=== PATIENT | female | born 1950 | race Caucasian/White ===

== ENCOUNTER 2020-04-28 11:57 | Inpatient (IN) | payer MEDICARE ==
[2020-04-28 12:54] LABS: #Monocytes 0.6 10x3/uL (0.0-1.1); #Neutrophils 8.6 10x3/uL (1.5-8.4); %Basophils 0.2 % (0.0-2.0); %Eosinophils 0.1 % (0.0-6.0); %Lymphocytes 7.8 % (18.0-47.0); %Monocytes 5.9 % (0.0-10.0); Hemoglobin 13.7 g/dL (12.0-15.5); Mean Corpuscular HGB CONC 34.3 g/dL (32.0-36.0); Mean Corpuscular Hemoglobin 34.8 pg (27.0-33.0); Mean Corpuscular Volume 101.5 fl (81.6-98.3); Mean Platelet Volume 10.2 fl (7.4-10.4); Platelet Count 142 10x3/uL (150-450); RBC Distribution Width 14.1 % (11.5-14.5); Red Blood Cell (RBC) Count 3.94 10x6/uL (3.90-5.03); White Blood Cell (WBC) Count 10.2 10x3/uL (3.5-10.5)
[2020-04-28 13:07] LABS: ALT (SGPT) 99 U/L (8-55); AST (SGOT) 59 U/L (5-34); Alkaline Phosphatase 35 U/L (40-110); Anion Gap 18 mmol/L (10-20); BUN (Urea Nitrogen) 36 mg/dL (9.8-20.1); Bilirubin, Total 1.3 mg/dL (0.2-1.2); Calc. Creatinine Clearance 0 mL/min (70-130); Calcium 8.9 mg/dL (7.8-10.44); Carbon Dioxide 29 mmol/L (23-31); Chloride 97 mmol/L (98-107); Globulin 2.1 g/dL (2.4-3.5); Glucose 124 mg/dL (80-115); Potassium 3.7 mmol/L (3.5-5.1); Protein, Total 6.1 g/dL (5.8-8.1); Sodium 140 mmol/L (136-145)
[2020-04-28 14:41] LABS: CKMB 5.5 ng/mL (0-6.6)
[2020-04-28] MEDS ORDERED: Furosemide 40 MG/4 ML VIAL ONE (16:20)
[2020-04-28 17:33] LABS: Troponin I 0.089 ng/mL (< 0.028)
[2020-04-28] MEDS ORDERED: Acetaminophen 325 MG TAB PO PRN (17:43)
[2020-04-28] MEDS ORDERED: HYDROcodone/Acetaminophen 5/325 mg Tablet PO PRN (17:43)
[2020-04-28] MEDS ORDERED: Calcium Carbonate 500 MG ChewTAB PO PRN (17:43)
[2020-04-28] MEDS ORDERED: Senokot S 8.6-50 MG TAB PO PRN (17:43)
[2020-04-28] MEDS ORDERED: Fluticasone Propionate Nasal Spray 16 gm Bottle NASAL PRN (17:48)
[2020-04-28 17:50] VITALS: BMI 34.7
[2020-04-28] MEDS ORDERED: ESTRADIOL VAG SCH (18:00)
[2020-04-28 20:00] LABS: Bilirubin Neg (Negative); Blood, Urine Negative (Negative); Clarity Clear (Clear); Glucose, Urine (Dipstick) Normal (Negative); Ketone, Urine Negative (Negative); Leukocyte Negative (Negative); Nitrite Negative (Negative); Protein, Urine (Dipstick) Negative (Neg-Trace); Specific Gravity, Urine 1.005 (1.002-1.036); Urobilinogen Normal mg/dL (Less than 2)
[2020-04-28] MEDS ORDERED: Potassium Chloride 20 MEQ TAB PO SCH (20:00)
[2020-04-28] MEDS ORDERED: Artificial Tear Sol 15 ML BOT EA EYE PRN (20:10)
[2020-04-28 20:11] LABS: Bacteria/HPF None Seen HPF (None Seen); RBC/HPF None Seen HPF (0-3); Squamous Epithelial 0-3 HPF (0-3); WBC/HPF None Seen HPF (0-3)
[2020-04-28 20:18] LABS: Creatinine, Urine Less than 20.00 mg/dL (47-110); Microalbumin Urine Less than 1.0 mg/dL (0.5-50.0)
[2020-04-28 20:23] LABS: Troponin I 0.117 ng/mL (< 0.028)
[2020-04-28] MEDS: Arformoterol 15 MCG/2 ML NEB NEB SCH (20:30)
[2020-04-28] MEDS ORDERED: PILOCARPINE HCL 7.5 MG PO SCH (21:00)
[2020-04-28] MEDS ORDERED: [UNRECOGNIZED DRUG - OTHER] PO SCH (21:00)
[2020-04-28] MEDS ORDERED: Artificial Tear Sol 15 ML BOT EA EYE SCH (21:00)
[2020-04-28] MEDS ORDERED: CALCIUM CARBONATE PO SCH (21:00)
[2020-04-28] MEDS ORDERED: Cephalexin 500 MG CAP PO SCH (21:00)
[2020-04-28] MEDS ORDERED: VITAMIN D3 PO SCH (21:00)
[2020-04-28] MEDS: Montelukast Sodium 10 mg Tablet PO SCH (21:13)
[2020-04-28] MEDS: traZODone HCl 50 MG TAB PO SCH (21:13)
[2020-04-28] MEDS: Cephalexin 250 MG CAP PO SCH (21:13)
[2020-04-28] MEDS: Zolpidem Tartrate 5 MG TAB PO SCH (21:51)
[2020-04-28 23:54] LABS: CKMB 4.4 ng/mL (0-6.6)
[2020-04-29] MEDS: Albuterol Sulfate 2.5 mg/3 ml Neb NEB PRN ×2 (01:51→14:22)
[2020-04-29 05:50] LABS: #Eosinphils 0.1 10x3/uL (0.0-0.5); #Monocytes 0.7 10x3/uL (0.0-1.1); #Neutrophils 6.4 10x3/uL (1.5-8.4); %Basophils 0.2 % (0.0-2.0); %Eosinophils 0.5 % (0.0-6.0); %Lymphocytes 22.6 % (18.0-47.0); %Monocytes 7.7 % (0.0-10.0); %Neutrophils 68.1 % (40.0-75.0); Hemoglobin 11.7 g/dL (12.0-15.5); Mean Corpuscular HGB CONC 34.1 g/dL (32.0-36.0); Mean Corpuscular Hemoglobin 34.6 pg (27.0-33.0); Mean Corpuscular Volume 101.5 fl (81.6-98.3); Mean Platelet Volume 10.1 fl (7.4-10.4); Platelet Count 127 10x3/uL (150-450); RBC Distribution Width 14.5 % (11.5-14.5); Red Blood Cell (RBC) Count 3.38 10x6/uL (3.90-5.03); White Blood Cell (WBC) Count 9.4 10x3/uL (3.5-10.5)
[2020-04-29] MEDS: Furosemide 40 MG/4 ML VIAL SLOW IVP SCH ×2 (05:55→14:17)
[2020-04-29 06:02] LABS: ALT (SGPT) 75 U/L (8-55); AST (SGOT) 44 U/L (5-34); Albumin 3.3 g/dL (3.4-4.8); Alkaline Phosphatase 29 U/L (40-110); Bilirubin, Direct 0.4 mg/dL (0.1-0.3); Protein, Total 5.1 g/dL (5.8-8.1)
[2020-04-29 06:03] LABS: Anion Gap 14 mmol/L (10-20); BUN (Urea Nitrogen) 33 mg/dL (9.8-20.1); CRP (Inflammatory) Less than 0.50 mg/dL (= or < 0.5); Calc. Creatinine Clearance 72 mL/min (70-130); Calcium 7.8 mg/dL (7.8-10.44); Carbon Dioxide 28 mmol/L (23-31); Chloride 102 mmol/L (98-107); Glucose 91 mg/dL (80-115); Potassium 3.1 mmol/L (3.5-5.1); Sodium 141 mmol/L (136-145)
[2020-04-29 06:33] LABS: CKMB 4.3 ng/mL (0-6.6)
[2020-04-29 06:59] LABS: SARS-CoV-2 PCR by NAA Not Detected (NotDetected)
[2020-04-29] MEDS: Arformoterol 15 MCG/2 ML NEB NEB SCH ×2 (07:30→19:14)
[2020-04-29] MEDS: Carvedilol 6.25 MG TAB PO SCH ×2 (08:13→16:51)
[2020-04-29] MEDS: Calcium Carbonate 600 MG + Vit D TAB PO SCH ×2 (08:13→16:51)
[2020-04-29] MEDS: Potassium Bicarbonate/Cit Ac 20 MEQ TAB PO SCH (08:13)
[2020-04-29] MEDS: Cephalexin 250 MG CAP PO SCH ×2 (08:13→20:27)
[2020-04-29] MEDS: azaTHIOprine 50 MG TAB PO SCH (08:13)
[2020-04-29] MEDS: Folic Acid 1 MG TAB PO SCH (08:14)
[2020-04-29] MEDS: Enoxaparin Sodium 40 MG/0.4 ML SYRINGE SC SCH (08:14)
[2020-04-29] MEDS: Multivit, Therapeutic 1 TAB PO SCH (08:14)
[2020-04-29] MEDS: predniSONE 5 MG TAB PO SCH (08:14)
[2020-04-29] MEDS: Losartan 25 MG TAB PO SCH (08:14)
[2020-04-29] MEDS: Saccharomyces boulardii 250 MG CAP PO SCH (08:14)
[2020-04-29] MEDS: Cholecalciferol 1,000 UNITS (25 MCG) TAB PO SCH (08:14)
[2020-04-29 11:45] LABS: Hemoglobin A1c 5.2 % (4.0-6.0)
[2020-04-29] MEDS: traZODone HCl 50 MG TAB PO SCH (20:27)
[2020-04-29] MEDS: Montelukast Sodium 10 mg Tablet PO SCH (20:27)
[2020-04-29] MEDS: guaiFENesin ER 600 MG TAB PO PRN (20:28)
[2020-04-29] MEDS: Zolpidem Tartrate 5 MG TAB PO SCH (21:58)
[2020-04-30] MEDS: Furosemide 40 MG/4 ML VIAL SLOW IVP SCH (05:16)
[2020-04-30] MEDS: Arformoterol 15 MCG/2 ML NEB NEB SCH ×2 (07:32→19:15)
[2020-04-30] MEDS: Potassium Bicarbonate/Cit Ac 20 MEQ TAB PO SCH (08:04)
[2020-04-30] MEDS: Methotrexate Sodium 2.5 MG TAB PO SCH (08:04)
[2020-04-30] MEDS: azaTHIOprine 50 MG TAB PO SCH (08:04)
[2020-04-30] MEDS: Cholecalciferol 1,000 UNITS (25 MCG) TAB PO SCH (08:04)
[2020-04-30] MEDS: Calcium Carbonate 600 MG + Vit D TAB PO SCH ×2 (08:04→16:45)
[2020-04-30] MEDS: Folic Acid 1 MG TAB PO SCH (08:04)
[2020-04-30] MEDS: Multivit, Therapeutic 1 TAB PO SCH (08:04)
[2020-04-30] MEDS: Enoxaparin Sodium 40 MG/0.4 ML SYRINGE SC SCH (08:04)
[2020-04-30] MEDS: Cephalexin 250 MG CAP PO SCH ×2 (08:04→21:13)
[2020-04-30] MEDS: Losartan 25 MG TAB PO SCH (08:04)
[2020-04-30] MEDS: Carvedilol 6.25 MG TAB PO SCH ×2 (08:04→16:29)
[2020-04-30] MEDS: Saccharomyces boulardii 250 MG CAP PO SCH (08:05)
[2020-04-30] MEDS: predniSONE 5 MG TAB PO SCH (08:05)
[2020-04-30 09:26] LABS: Anion Gap 14 mmol/L (10-20); BUN (Urea Nitrogen) 27 mg/dL (9.8-20.1); Calc. Creatinine Clearance 66 mL/min (70-130); Calcium 8.3 mg/dL (7.8-10.44); Carbon Dioxide 30 mmol/L (23-31); Chloride 100 mmol/L (98-107); Glucose 90 mg/dL (80-115); Potassium 3.1 mmol/L (3.5-5.1); Sodium 141 mmol/L (136-145)
[2020-04-30] MEDS: Albuterol Sulfate 2.5 mg/3 ml Neb NEB PRN ×2 (11:58→19:15)
[2020-04-30] MEDS ORDERED: Albumin 25% 25 GM/100 ML BOT IVPB SCH (13:04)
[2020-04-30] MEDS ORDERED: Sodium Chloride 0.9% 250 ML IV SCH (13:15)
[2020-04-30] MEDS ORDERED: Hydrocortisone Sod Succ/PF 100 mg/2 ml Vial IVP SCH (13:15)
[2020-04-30] MEDS: Potassium Chloride 20 MEQ in Premix Bag 1 BAG IVPB SCH ×2 (13:50→14:14)
[2020-04-30] MEDS: guaiFENesin ER 600 MG TAB PO PRN (14:29)
[2020-04-30] MEDS ORDERED: predniSONE 10 MG TAB PO SCH (15:15)
[2020-04-30] MEDS ORDERED: predniSONE 5 MG TAB PO SCH (15:15)
[2020-04-30] MEDS: traZODone HCl 50 MG TAB PO SCH (21:13)
[2020-04-30] MEDS: Montelukast Sodium 10 mg Tablet PO SCH (21:13)
[2020-04-30] MEDS: Zolpidem Tartrate 5 MG TAB PO SCH (21:13)
[2020-05-01 05:58] LABS: ALT (SGPT) 80 U/L (8-55); AST (SGOT) 41 U/L (5-34); Albumin 3.8 g/dL (3.4-4.8); Alkaline Phosphatase 33 U/L (40-110); Anion Gap 14 mmol/L (10-20); BUN (Urea Nitrogen) 25 mg/dL (9.8-20.1); Bilirubin, Total 0.7 mg/dL (0.2-1.2); Calc. Creatinine Clearance 79 mL/min (70-130); Calcium 8.4 mg/dL (7.8-10.44); Carbon Dioxide 25 mmol/L (23-31); Chloride 104 mmol/L (98-107); Globulin 1.9 g/dL (2.4-3.5); Glucose 131 mg/dL (80-115); Potassium 3.8 mmol/L (3.5-5.1); Protein, Total 5.7 g/dL (5.8-8.1); Sodium 139 mmol/L (136-145)
[2020-05-01] MEDS: Albuterol Sulfate 2.5 mg/3 ml Neb NEB PRN ×2 (07:39→18:44)
[2020-05-01] MEDS: Arformoterol 15 MCG/2 ML NEB NEB SCH ×2 (08:15→18:42)
[2020-05-01] MEDS: Cholecalciferol 1,000 UNITS (25 MCG) TAB PO SCH (10:32)
[2020-05-01] MEDS: Cephalexin 250 MG CAP PO SCH ×2 (10:33→21:31)
[2020-05-01] MEDS: predniSONE 10 MG TAB PO SCH (10:34)
[2020-05-01] MEDS: Folic Acid 1 MG TAB PO SCH (10:35)
[2020-05-01] MEDS: Saccharomyces boulardii 250 MG CAP PO SCH (10:35)
[2020-05-01] MEDS: Calcium Carbonate 600 MG + Vit D TAB PO SCH ×2 (10:35→19:08)
[2020-05-01] MEDS: Carvedilol 6.25 MG TAB PO SCH ×2 (10:36→19:08)
[2020-05-01] MEDS: azaTHIOprine 50 MG TAB PO SCH (10:37)
[2020-05-01] MEDS: Losartan 25 MG TAB PO SCH (10:37)
[2020-05-01] MEDS: Multivit, Therapeutic 1 TAB PO SCH (10:37)
[2020-05-01] MEDS: Furosemide 40 MG/4 ML VIAL SLOW IVP SCH (10:38)
[2020-05-01] MEDS: Fluconazole 100 MG TAB PO SCH (19:08)
[2020-05-01] MEDS: Enoxaparin Sodium 40 MG/0.4 ML SYRINGE SC SCH (19:09)
[2020-05-01] MEDS: Potassium Bicarbonate/Cit Ac 20 MEQ TAB PO SCH (19:09)
[2020-05-01] MEDS: traZODone HCl 50 MG TAB PO SCH (21:31)
[2020-05-01] MEDS: Zolpidem Tartrate 5 MG TAB PO SCH (21:31)
[2020-05-01] MEDS: Montelukast Sodium 10 mg Tablet PO SCH (21:31)
[2020-05-02] MEDS: Arformoterol 15 MCG/2 ML NEB NEB SCH (07:08)
[2020-05-02] MEDS: Multivit, Therapeutic 1 TAB PO SCH (08:11)
[2020-05-02] MEDS: Cholecalciferol 1,000 UNITS (25 MCG) TAB PO SCH (08:11)
[2020-05-02] MEDS: Furosemide 40 MG/4 ML VIAL SLOW IVP SCH (08:11)
[2020-05-02] MEDS: Potassium Bicarbonate/Cit Ac 20 MEQ TAB PO SCH (08:11)
[2020-05-02] MEDS: azaTHIOprine 50 MG TAB PO SCH (08:11)
[2020-05-02] MEDS: predniSONE 10 MG TAB PO SCH (08:11)
[2020-05-02] MEDS: Saccharomyces boulardii 250 MG CAP PO SCH (08:11)
[2020-05-02] MEDS: Methotrexate Sodium 2.5 MG TAB PO SCH (08:11)
[2020-05-02] MEDS: Enoxaparin Sodium 40 MG/0.4 ML SYRINGE SC SCH (08:11)
[2020-05-02] MEDS: Cephalexin 250 MG CAP PO SCH (08:11)
[2020-05-02] MEDS: Folic Acid 1 MG TAB PO SCH (08:11)
[2020-05-02] MEDS: Carvedilol 6.25 MG TAB PO SCH ×2 (08:11→17:14)
[2020-05-02] MEDS: Calcium Carbonate 600 MG + Vit D TAB PO SCH ×2 (08:11→17:14)
[2020-05-02] MEDS: Losartan 25 MG TAB PO SCH (08:11)
[2020-05-02] MEDS: guaiFENesin ER 600 MG TAB PO PRN (08:13)
[2020-05-02] MEDS ORDERED: Fluconazole 100 MG TAB PO SCH (09:00)
[2020-05-02] MEDS: Albuterol Sulfate 2.5 mg/3 ml Neb NEB PRN (12:45)
[2020-05-02 16:09] LABS: ANA Symphony (Qualitative) Negative (Negative); ANA Symphony (Quantitative) 0.1 Ratio (< 0.7 Negative); dsDNA IgG Antibody Less than 0.5 IU/mL (<10 Negative)
[2020-05-02 16:22] VITALS: TEMP 98.4
[2020-05-02] MEDS: Fluconazole 100 MG TAB PO SCH (17:14)
[2020-05-02 17:16] VITALS: BP 112/68
== END 2020-05-02 17:56 | disposition home or self-care (01) | DRG 291 ==
LOC: CSHERS 11:57 → CSHTELE 17:31
PROVIDERS: ADMIT Student in an Organized Health Care Education/Training Program; ATTEND Emergency Medicine
DX: I13.0 Hypertensive heart and chronic kidney disease with heart failure and stage 1 through stage 4 chronic kidney disease, or unspecified chronic kidney disease (principal); I50.31 Acute diastolic (congestive) heart failure; N17.9 Acute kidney failure, unspecified; L97.919 Non-pressure chronic ulcer of unspecified part of right lower leg with unspecified severity; E27.40 Unspecified adrenocortical insufficiency; Z20.822 Contact with and (suspected) exposure to COVID-19; T38.0X5A Adverse effect of glucocorticoids and synthetic analogues, initial encounter; T46.1X5A Adverse effect of calcium-channel blockers, initial encounter; N18.30 Chronic kidney disease, stage 3 unspecified; R60.9 Edema, unspecified; M06.9 Rheumatoid arthritis, unspecified; J45.909 Unspecified asthma, uncomplicated; M35.00 Sjogren syndrome, unspecified; E66.9 Obesity, unspecified; K21.9 Gastro-esophageal reflux disease without esophagitis; M81.0 Age-related osteoporosis without current pathological fracture; M85.80 Other specified disorders of bone density and structure, unspecified site; R79.89 Other specified abnormal findings of blood chemistry; Z79.899 Other long term (current) drug therapy; Z79.52 Long term (current) use of systemic steroids; B37.3 Candidiasis of vulva and vagina; I95.9 Hypotension, unspecified; Z86.16 Personal history of COVID-19; Z88.1 Allergy status to other antibiotic agents; Z88.8 Allergy status to other drugs, medicaments and biological substances; Z91.09 Other allergy status, other than to drugs and biological substances
CPT/HCPCS: 36415; 71045; 71250; 80048; 80053; 80076; 81001; 82043; 82553; 83036; 83880; 84443; 84484; 85025; 85379; 85652; 86038; 86140; 86225; 87635; 93005; 93306; 93970; 94640; 94760; 96374; J1650; J1720; J1940; J3480; J7030; J7500; J7512; J7611; J8610; P9047; U0003; U0005

== ENCOUNTER 2020-12-19 08:17 | Outpatient (CLI) | payer MEDICARE | END 2020-12-19 08:18 | disposition home or self-care (01) | LOC: CSHWCC 08:17 | PROVIDERS: ATTEND Nurse Practitioner Family | DX: I87.331 Chronic venous hypertension (idiopathic) with ulcer and inflammation of right lower extremity (principal); L97.212 Non-pressure chronic ulcer of right calf with fat layer exposed; B02.9 Zoster without complications; G47.33 Obstructive sleep apnea (adult) (pediatric); I50.32 Chronic diastolic (congestive) heart failure; I87.2 Venous insufficiency (chronic) (peripheral); J45.50 Severe persistent asthma, uncomplicated; L03.115 Cellulitis of right lower limb; M06.4 Inflammatory polyarthropathy; R60.0 Localized edema; W22.8XXD Striking against or struck by other objects, subsequent encounter | CPT/HCPCS: 11042; 11045; 97139; G0463; 99203 ==

== ENCOUNTER 2020-12-23 08:03 | Outpatient (CLI) | payer MEDICARE | END 2020-12-23 08:04 | disposition home or self-care (01) | LOC: CSHWCC 08:03 | PROVIDERS: ATTEND Nurse Practitioner Family | DX: I87.331 Chronic venous hypertension (idiopathic) with ulcer and inflammation of right lower extremity (principal); I87.2 Venous insufficiency (chronic) (peripheral); L97.212 Non-pressure chronic ulcer of right calf with fat layer exposed; L97.912 Non-pressure chronic ulcer of unspecified part of right lower leg with fat layer exposed; L03.115 Cellulitis of right lower limb; R60.0 Localized edema; I50.32 Chronic diastolic (congestive) heart failure; J45.50 Severe persistent asthma, uncomplicated; B02.9 Zoster without complications; G47.33 Obstructive sleep apnea (adult) (pediatric); M06.4 Inflammatory polyarthropathy; M89.9 Disorder of bone, unspecified; W22.8XXD Striking against or struck by other objects, subsequent encounter | CPT/HCPCS: 29581; 97139; G0463; 99213 ==

== ENCOUNTER 2020-12-26 09:43 | Outpatient (CLI) | payer MEDICARE | END 2020-12-26 09:44 | disposition home or self-care (01) | LOC: CSHWCC 09:43 | PROVIDERS: ATTEND Nurse Practitioner Family | DX: I87.331 Chronic venous hypertension (idiopathic) with ulcer and inflammation of right lower extremity (principal); B02.9 Zoster without complications; G47.33 Obstructive sleep apnea (adult) (pediatric); I50.32 Chronic diastolic (congestive) heart failure; I87.2 Venous insufficiency (chronic) (peripheral); L97.212 Non-pressure chronic ulcer of right calf with fat layer exposed; J45.50 Severe persistent asthma, uncomplicated; L03.115 Cellulitis of right lower limb; L97.912 Non-pressure chronic ulcer of unspecified part of right lower leg with fat layer exposed; M06.4 Inflammatory polyarthropathy; M89.9 Disorder of bone, unspecified; R60.0 Localized edema; W22.8XXS Striking against or struck by other objects, sequela ==

== ENCOUNTER 2020-12-31 08:50 | Outpatient (CLI) | payer MEDICARE | END 2020-12-31 08:51 | disposition home or self-care (01) | LOC: CSHWCC 08:50 | PROVIDERS: ATTEND Nurse Practitioner Family | DX: I87.331 Chronic venous hypertension (idiopathic) with ulcer and inflammation of right lower extremity (principal); I87.2 Venous insufficiency (chronic) (peripheral); L97.212 Non-pressure chronic ulcer of right calf with fat layer exposed; L97.912 Non-pressure chronic ulcer of unspecified part of right lower leg with fat layer exposed; L03.115 Cellulitis of right lower limb; R60.0 Localized edema; I50.32 Chronic diastolic (congestive) heart failure; J45.50 Severe persistent asthma, uncomplicated; M06.4 Inflammatory polyarthropathy; M89.9 Disorder of bone, unspecified; B02.9 Zoster without complications; G47.33 Obstructive sleep apnea (adult) (pediatric); W22.8XXD Striking against or struck by other objects, subsequent encounter | CPT/HCPCS: 11042; 11045; 97139; G0463; 99213 ==

== ENCOUNTER 2021-01-07 10:23 | Outpatient (CLI) | payer MEDICARE | END 2021-01-07 10:24 | disposition home or self-care (01) | LOC: CSHWCC 10:23 | PROVIDERS: ATTEND Nurse Practitioner Family | DX: I87.331 Chronic venous hypertension (idiopathic) with ulcer and inflammation of right lower extremity (principal); I87.2 Venous insufficiency (chronic) (peripheral); L97.212 Non-pressure chronic ulcer of right calf with fat layer exposed; L97.912 Non-pressure chronic ulcer of unspecified part of right lower leg with fat layer exposed; R60.0 Localized edema; L03.115 Cellulitis of right lower limb; I50.32 Chronic diastolic (congestive) heart failure; J45.50 Severe persistent asthma, uncomplicated; M06.4 Inflammatory polyarthropathy; M89.9 Disorder of bone, unspecified; B02.9 Zoster without complications; G47.33 Obstructive sleep apnea (adult) (pediatric); W22.8XXS Striking against or struck by other objects, sequela | CPT/HCPCS: 29581; 99213; G0463 ==

== ENCOUNTER 2021-01-19 09:12 | Outpatient (CLI) | payer MEDICARE | END 2021-01-19 09:13 | disposition home or self-care (01) | LOC: CSHWCC 09:12 | PROVIDERS: ATTEND Nurse Practitioner Family | DX: I87.331 Chronic venous hypertension (idiopathic) with ulcer and inflammation of right lower extremity (principal); L97.912 Non-pressure chronic ulcer of unspecified part of right lower leg with fat layer exposed; L03.115 Cellulitis of right lower limb; R60.0 Localized edema; M06.4 Inflammatory polyarthropathy; M89.9 Disorder of bone, unspecified; B02.9 Zoster without complications; G47.33 Obstructive sleep apnea (adult) (pediatric); I87.2 Venous insufficiency (chronic) (peripheral); I50.32 Chronic diastolic (congestive) heart failure; W22.8XXD Striking against or struck by other objects, subsequent encounter | CPT/HCPCS: 99213; G0463 ==

== ENCOUNTER 2021-02-03 09:08 | Outpatient (CLI) | payer MEDICARE | END 2021-02-03 09:09 | disposition home or self-care (01) | LOC: CSHWCC 09:08 | PROVIDERS: ATTEND Nurse Practitioner Family | DX: I87.331 Chronic venous hypertension (idiopathic) with ulcer and inflammation of right lower extremity (principal); B02.9 Zoster without complications; G47.33 Obstructive sleep apnea (adult) (pediatric); I50.32 Chronic diastolic (congestive) heart failure; I87.2 Venous insufficiency (chronic) (peripheral); L97.212 Non-pressure chronic ulcer of right calf with fat layer exposed; J45.50 Severe persistent asthma, uncomplicated; L03.115 Cellulitis of right lower limb; L97.912 Non-pressure chronic ulcer of unspecified part of right lower leg with fat layer exposed; M06.4 Inflammatory polyarthropathy; M89.9 Disorder of bone, unspecified; R60.0 Localized edema; W22.8XXS Striking against or struck by other objects, sequela | CPT/HCPCS: 97139; G0463; 99213 ==

== ENCOUNTER 2023-01-24 12:32 | Outpatient (CLI) | payer MEDICARE ==
[~2023-01-24 12:32] MED LIST: Magnevist 469MG/ML 20 ML VIAL ONE
== END 2023-01-24 12:33 | disposition home or self-care (01) ==
LOC: CSHMRI 12:32
PROVIDERS: ATTEND Psychiatry & Neurology Neurology
DX: M48.061 Spinal stenosis, lumbar region without neurogenic claudication (principal); M47.816 Spondylosis without myelopathy or radiculopathy, lumbar region; Z98.890 Other specified postprocedural states
CPT/HCPCS: 72158

== ENCOUNTER 2023-04-11 14:27 | Outpatient (CLI) | payer MEDICARE ==
[2023-04-11] MEDS ORDERED: Magnevist 469MG/ML 20 ML VIAL ONE (14:30)
== END 2023-04-11 14:28 | disposition home or self-care (01) ==
LOC: CSHMRI 14:27
PROVIDERS: ATTEND Psychiatry & Neurology Neurology
DX: R27.0 Ataxia, unspecified (principal); G31.9 Degenerative disease of nervous system, unspecified
CPT/HCPCS: 70553; 82565; A9579

== ENCOUNTER 2023-04-14 16:23 | Outpatient (CLI) | payer MEDICARE | END 2023-04-14 16:24 | disposition home or self-care (01) | LOC: CSHRAD 16:23 | PROVIDERS: ATTEND Family Medicine | DX: M54.2 Cervicalgia (principal); R07.81 Pleurodynia; M54.6 Pain in thoracic spine; Z98.890 Other specified postprocedural states; M47.812 Spondylosis without myelopathy or radiculopathy, cervical region; S22.39XD Fracture of one rib, unspecified side, subsequent encounter for fracture with routine healing; S22.009D Unspecified fracture of unspecified thoracic vertebra, subsequent encounter for fracture with routine healing; M47.814 Spondylosis without myelopathy or radiculopathy, thoracic region | CPT/HCPCS: 71046; 72050; 72070 ==

== ENCOUNTER 2023-04-21 08:33 | Outpatient (CLI) | payer MEDICARE | END 2023-04-21 08:34 | disposition home or self-care (01) | LOC: CSHCT 08:33 | PROVIDERS: ATTEND Psychiatry & Neurology Neurology | DX: M47.24 Other spondylosis with radiculopathy, thoracic region (principal); Z98.890 Other specified postprocedural states; S22.009D Unspecified fracture of unspecified thoracic vertebra, subsequent encounter for fracture with routine healing; M85.9 Disorder of bone density and structure, unspecified | CPT/HCPCS: 72128 ==

== ENCOUNTER 2023-08-19 09:56 | Outpatient (CLI) | payer MEDICARE | END 2023-08-19 09:57 | disposition home or self-care (01) | LOC: CSHRAD 09:56 | PROVIDERS: ATTEND Internal Medicine Rheumatology | DX: K46.9 Unspecified abdominal hernia without obstruction or gangrene (principal); R19.00 Intra-abdominal and pelvic swelling, mass and lump, unspecified site | CPT/HCPCS: 76705 ==

== ENCOUNTER 2024-08-16 15:16 | Outpatient (CLI) | payer MEDICARE | END 2024-08-16 15:17 | disposition home or self-care (01) | LOC: CSHWCC 15:16 | PROVIDERS: ATTEND Nurse Practitioner Family | DX: I87.331 Chronic venous hypertension (idiopathic) with ulcer and inflammation of right lower extremity (principal); L97.822 Non-pressure chronic ulcer of other part of left lower leg with fat layer exposed; M06.9 Rheumatoid arthritis, unspecified | CPT/HCPCS: 11042; 11045 ==

== ENCOUNTER 2024-09-28 08:54 | Outpatient (CLI) | payer MEDICARE | END 2024-09-28 08:55 | disposition home or self-care (01) | LOC: CSHWCC 08:54 | PROVIDERS: ATTEND Nurse Practitioner Family | DX: S50.821 Blister (nonthermal) of right forearm (principal); I87.331 Chronic venous hypertension (idiopathic) with ulcer and inflammation of right lower extremity; L97.822 Non-pressure chronic ulcer of other part of left lower leg with fat layer exposed; M06.9 Rheumatoid arthritis, unspecified | CPT/HCPCS: 11042 ==

== ENCOUNTER 2024-10-04 11:18 | Outpatient (CLI) | payer MEDICARE | END 2024-10-04 11:19 | disposition home or self-care (01) | LOC: CSHWCC 11:18 | PROVIDERS: ATTEND Nurse Practitioner Family | DX: S50.821 Blister (nonthermal) of right forearm (principal); I87.331 Chronic venous hypertension (idiopathic) with ulcer and inflammation of right lower extremity; L97.822 Non-pressure chronic ulcer of other part of left lower leg with fat layer exposed; M06.9 Rheumatoid arthritis, unspecified | CPT/HCPCS: 11042 ==

== ENCOUNTER 2024-10-12 15:00 | Outpatient (CLI) | payer MEDICARE | END 2024-10-12 15:01 | disposition home or self-care (01) | LOC: CSHWCC 15:00 | PROVIDERS: ATTEND Nurse Practitioner Family | DX: S50.821 Blister (nonthermal) of right forearm (principal); I87.331 Chronic venous hypertension (idiopathic) with ulcer and inflammation of right lower extremity; L97.822 Non-pressure chronic ulcer of other part of left lower leg with fat layer exposed; M06.9 Rheumatoid arthritis, unspecified ==

== ENCOUNTER 2024-10-26 10:58 | Outpatient (CLI) | payer MEDICARE | END 2024-10-26 10:59 | disposition home or self-care (01) | LOC: CSHWCC 10:58 | PROVIDERS: ATTEND Nurse Practitioner Family | DX: S50.821 Blister (nonthermal) of right forearm (principal); I87.331 Chronic venous hypertension (idiopathic) with ulcer and inflammation of right lower extremity; L97.822 Non-pressure chronic ulcer of other part of left lower leg with fat layer exposed; M06.9 Rheumatoid arthritis, unspecified | CPT/HCPCS: 99212; G0463 ==